=== PATIENT | female | born 1955 | race Caucasian/White ===

== ENCOUNTER → 2018-12-29 | Outpatient (CLI) | payer OTHER | END | disposition home or self-care (01) | LOC: LABWHC1 14:03 | PROVIDERS: ATTEND Ophthalmology | DX: G70.01 Myasthenia gravis with (acute) exacerbation (principal) | CPT/HCPCS: 36415; 83519 ==

== ENCOUNTER 2022-01-10 07:22 | Day surgery (SDC) | payer BC, OTHER ==
[~2022-01-10 07:22] MED LIST: DEXAMETHASONE SOD PHOSPHATE 4 MG/ML 1 ML VIAL IV ONE; FAMOTIDINE 20 MG/2 ML VIAL IV PRN; HYDROmorphone 0.5 MG/0.5 ML SYRINGE IVP PRN; LACTATED RINGERS 1,000 ML IV SCH; LIDOCAINE 1% (10MG/ML) FOR IV START INTRADERMA PRN; METOCLOPRAMIDE 5 MG/ML 2 ML VIAL IVP PRN; ONDANSETRON 4 MG/2 ML VIAL IVP ONE; ceFAZolin 3 GM in SODIUM CHLORIDE 0.9% 100 ML IVPB PRN
[2022-01-10] MEDS: OXYMETAZOLINE 0.05% NASL SPRAY 1 SPRAY BOTTLE EA NOSTRIL PRN ×5 (07:50→08:10)
[2022-01-10 07:59] VITALS: TEMP 97.4
[2022-01-10] MEDS ORDERED: DEXAMETHASONE SOD PHOSPHATE 4 MG/ML 1 ML VIAL IVP ONE (08:24)
[2022-01-10] MEDS ORDERED: ONDANSETRON 4 MG/2 ML VIAL IVP ONE (08:25)
[2022-01-10] MEDS ORDERED: MIDAZOLAM 2 MG/2 ML VIAL ONE (08:39)
[2022-01-10] MEDS ORDERED: SUCCINYLCHOLINE CHLORIDE 200 MG/10 ML VIAL IV ONE (08:39)
[2022-01-10] MEDS ORDERED: fentaNYL (PF) 50 MCG/ML 2 ML AMP ONE (08:39)
[2022-01-10] MEDS ORDERED: PROPOFOL 10 MG/ML 20 ML VIAL IV ONE (08:39)
[2022-01-10] MEDS ORDERED: PHENYLEPHRINE-0.9% NACL SYG 1,000 MCG/10 ML SYRINGE ONE (08:39)
[2022-01-10] MEDS ORDERED: LIDOCAINE 2% INJ 20 MG/ML (2 ML VIAL) ONE (08:39)
[2022-01-10] MEDS ORDERED: LIDOCAINE 1%-EPI 1:100,000 20 ML VIAL SUBMUCOSAL ONE (08:53)
[2022-01-10] MEDS ORDERED: BACITRACIN ZINC 500 UNIT/GM OINT 28.4 GM TUBE TOPICAL ONE (09:08)
--- NOTE | 2022-01-10 09:14 | P.OP ---
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 This was ablated/vaporized with suction cautery- Description of Procedure: Patient was brought in the operative suite and placed in supine position. The patient underwent induction of general anesthesia with oral endotracheal intubation without difficulty. Patient was prepped and draped in usual aseptic fashion. Percent lidocaine with 1-100,000 epinephrine was infused submucosally left anterior septum. The hemangioma had become much smaller than her original description only approximately 1 mm with a prominent vessel. Therefore this was elected to vaporized and this was performed with suction cautery which ablated the small hemangioma and cauterized vessel also. Bacitracin ointment was placed. Excellent hemostasis was noted. The patient was allowed to emerge from anesthesia having tolerated procedure well and was transferred postoperative recovery area in satisfactory condition.
[2022-01-10 10:57] VITALS: BP 134/90; PULSE 60; RESP 16
== END 2022-01-10 11:08 | disposition home or self-care (01) ==
LOC: OR 07:22
PROVIDERS: ATTEND Otolaryngology
DX: R04.0 Epistaxis (principal); D18.09 Hemangioma of other sites; H40.9 Unspecified glaucoma; K58.9 Irritable bowel syndrome, unspecified; R42 Dizziness and giddiness; I10 Essential (primary) hypertension; E66.9 Obesity, unspecified; Z68.41 Body mass index [BMI] 40.0-44.9, adult; J32.9 Chronic sinusitis, unspecified; Z98.890 Other specified postprocedural states; Z80.1 Family history of malignant neoplasm of trachea, bronchus and lung; Z87.891 Personal history of nicotine dependence; Z79.82 Long term (current) use of aspirin; Z79.899 Other long term (current) drug therapy; Z88.5 Allergy status to narcotic agent; Z91.030 Bee allergy status
CPT/HCPCS: 31238; J2250; J0330; J1100; J0690; J2405; J3010; J2370; J2704; J2001